=== PATIENT | female | born 1990 | race American Indian/Alaskan Native ===

== ENCOUNTER 2021-06-20 18:56 | Emergency (ER) | payer SELFPAY ==
[2021-06-20 19:22] VITALS: BP 115/75
[2021-06-20] MEDS ORDERED: ONDANSETRON 4 MG ODT TAB PO ONE (19:28)
[2021-06-20] MEDS ORDERED: SULFAMETHOXAZOLE/TRIMETHOPRIM 800/160MG DS TAB PO ONE (19:28)
[2021-06-20] MEDS ORDERED: oxyCODONE /ACETAMINOPHEN 5-325MG TAB PO ONE (19:28)
[2021-06-20] MEDS ORDERED: IBUPROFEN 600 MG TAB PO ONE (19:28)
[2021-06-20] MEDS ORDERED: CLINDAMYCIN 300 MG CAP PO ONE (19:28)
[2021-06-20] MEDS ORDERED: LIDOCAINE (1%) 10 MG/1 ML VIAL 20 ML MDV INFILTRATI ONE (19:29)
--- NOTE | 2021-06-20 22:31 | Emergency Department Report ---
ED General Adult HPI - General Chief complaint: Extremity Injury, Upper Stated complaint: BOIL Source: patient Mode of arrival: Ambulatory Limitations: No Limitations - History of Present Illness Initial comments: Patient is a 31-year-old -Burkin[place] female with past medical history of recurrent hidradenitis suppurativa who presents to the ED with complaint of acute onset persistent painful swollen mild erythematous maculopapular rash on right axilla for the last 1 week. Patient states that the pain has worsened in the last 4 days. Patient states that the pain is typical to her chronic recurrent hidradenitis suppurativa rash. Patient denies fever, chills, nausea, vomiting, chest pain or shortness of breath, traumatic injury, numbness and tingling or weakness of right arm, dizziness, syncope or headache. MD Complaint: Right axilla painful swollen erythematous maculopapular rash -: Sudden, week(s) (1) Location: upper extremity (Right axilla) Radiation: non-radiation Severity scale (0 -10): 8 Quality: aching, sharp Consistency: constant Improves with: none Worsens with: none Associated Symptoms: denies other symptoms, rash (Swollen, painful erythematous, maculopapular rash on right axilla). denies: confusion, chest pain, cough, diaphoresis, fever/chills, headaches, loss of appetite, malaise, nausea/vomi ting, shortness of breath, syncope, weakness, other Treatments Prior to Arrival: none - Related Data Previous Rx's Medication Instructions Recorded Last Taken Type Acetaminophen/Codeine [Tylenol 1 tab PO Q6H PRN #12 tab 06/20/21 Unknown Rx /Codeine # 3 tab] Clindamycin [Clindamycin CAP] 300 mg PO Q8HR #60 capsule 06/20/21 Unknown Rx Ibuprofen [Motrin] 800 mg PO Q8HR PRN #30 tablet 06/20/21 Unknown Rx Sulfamethoxazole/Trimethoprim 1 each PO Q12H #20 tablet 06/20/21 Unknown Rx [Bactrim DS TAB] Allergies Allergy/AdvReac Type Severity Reaction Status Date / Time No Known Allergies Allergy Verified 06/20/21 19:22 ED Review of Systems ROS: Stated complaint: BOIL Other details as noted in HPI Constitutional: denies: chills, fever Eyes: denies: eye pain, eye discharge, vision change ENT: denies: ear pain, throat pain Respiratory: denies: cough, shortness of breath, wheezing Cardiovascular: denies: chest pain, palpitations Endocrine: no symptoms reported Gastrointestinal: denies: abdominal pain, nausea, diarrhea Genitourinary: denies: urgency, dysuria, discharge Musculoskeletal: arthralgia (Painful, swollen mild erythematous maculopapular rash on right axilla). denies: back pain, joint swelling Skin: rash, change in color, other (Erythematous painful swollen maculopapular rash on right axilla). denies: lesions Neurological: denies: headache, weakness, paresthesias Psychiatric: denies: anxiety, depression Hematological/Lymphatic: denies: easy bleeding, easy bruising ED Past Medical Hx - Past Medical History Additional medical history: gallstones - Surgical History Past Surgical History?: Yes Additional Surgical History: , cyst removal - Social History Smoking Status: Never Smoker Substance Use Type: Alcohol - Medications Home Medications: Home Medications Medication Instructions Recorded Confirmed Last Taken Type Acetaminophen/Codeine [Tylenol 1 tab PO Q6H PRN #12 tab 06/20/21 Unknown Rx /Codeine # 3 tab] Clindamycin [Clindamycin CAP] 300 mg PO Q8HR #60 capsule 06/20/21 Unknown Rx Ibuprofen [Motrin] 800 mg PO Q8HR PRN #30 tablet 06/20/21 Unknown Rx Sulfamethoxazole/Trimethoprim 1 each PO Q12H #20 tablet 06/20/21 Unknown Rx [Bactrim DS TAB] ED Physical Exam - General Limitations: No Limitations General appearance: alert, in no apparent distress - Head Head exam: Present: atraumatic, normocephalic, normal inspection - Eye Eye exam: Present: normal appearance, PERRL, EOMI Pupils: Present: normal accommodation - ENT ENT exam: Present: normal exam, normal orophraynx, mucous membranes moist, TM's normal bilaterally, normal external ear exam - Neck Neck exam: Present: normal inspection, full ROM - Respiratory Respiratory exam: Present: normal lung sounds bilaterally. Absent: respiratory distress, wheezes, rhonchi, chest wall tenderness, accessory muscle use, decreased breath sounds - Cardiovascular Cardiovascular Exam: Present: regular rate, normal rhythm, normal heart sounds. Absent: systolic murmur, diastolic murmur, rubs, gallop - GI/Abdominal GI/Abdominal exam: Present: soft, normal bowel sounds. Absent: tenderness, guarding, rebound, hyperactive bowel sounds, hypoactive bowel sounds - Extremities Exam Extremities exam: Present: normal inspection, full ROM, tenderness (Palpable right axilla tenderness due to erythematous maculopapular fluctuant rash), normal capillary refill. Absent: pedal edema, joint swelling - Back Exam Back exam: Present: normal inspection, full ROM. Absent: tenderness, CVA tenderness (R), CVA tenderness (L), muscle spasm, paraspinal tenderness - Neurological Exam Neurological exam: Present: alert, oriented X3, CN II-XII intact, normal gait, reflexes normal - Psychiatric Psychiatric exam: Present: normal affect, normal mood - Skin Skin exam: Present: warm, dry, intact, normal color, rash (Swollen, severely tender, erythematous maculopapular fluctuant rash on right axilla) ED Course Vital Signs 06/20/21 19:21 Temperature 99.9 F H Pulse Rate 90 Respiratory 19 Rate Blood Pressure 115/75 O2 Sat by Pulse 98 Oximetry - I & D Right Arm Type of Procedure: Simple Site: Right axilla Blade Size: 11 I & D Procedure: betadine prep, sterile drapes applied, sterile dressing applied, gauze wick placed Progress: The area was cleaned extensively with normal saline and Betadine solutions. Lidocaine 1% solution was infiltrated in the area for anesthesia. When anesthesia was fully achieved, the area was incised and drained with scalpel blade #11, and copious thick purulent discharge with traces of blood drained from the wound. The wound was then extensively debrided with normal saline and if loculations were broken with hemostat. Iodoform quarter gauze was used as a packing material. Patient tolerated procedure well. The wound was then dressed appropriately with 4 x 4 gauzes and Tegaderm. on reevaluation, patient's pain is well controlled medications, patient is hemodynamically stable. Patient was therefore discharged home on pain medications and antibiotics advised to return to the ED in 2 days for wound recheck and packing removal. Patient is advised to follow-up with her primary care physician in 7 to 10 days for reevaluation. ED Medical Decision Making - Medical Decision Making This is a 32-year-old -[place] female with past medical history of recurrent hidradenitis suppurativa who presents to the ED with complaint of acute onset persistent painful swollen mild erythematous maculopapular rash on right axilla for the last 1 week. Patient states that the pain has worsened in the last 4 days. Patient states that the pain is typical to her chronic recurrent hidradenitis suppurativa rash. In the ED, patient is alert and oriented x3 and is not in any distress. Patient however appears to be in significant pain. Patient was treated for pain in the ED and also given initial oral antibiotics in the ED. Right axilla abscess was incised and drained per protocol. The area was cleaned extensively with normal saline and Betadine s olutions. Lidocaine 1% solution was infiltrated in the area for anesthesia. When anesthesia was fully achieved, the area was incised and drained with scalpel blade #11, and copious thick purulent discharge with traces of blood drained from the wound. The wound was then extensively debrided with normal saline and if loculations were broken with hemostat. Iodoform quarter gauze was used as a packing material. Patient tolerated procedure well. The wound was then dressed appropriately with 4 x 4 gauzes and Tegaderm. on reevaluation, patient's pain is well controlled medications, patient is hemodynamically stable. Patient was therefore discharged home on pain medications and antibiotics advised to return to the ED in 2 days for wound recheck and packing removal. Patient is advised to follow-up with her primary care physician in 7 to 10 days for reevaluation. - Differential Diagnosis Cellulitis; folliculitis; cutaneous abscess Critical care attestation.: If time is entered above; I have spent that time in minutes in the direct care of this critically ill patient, excluding procedure time. ED Disposition Clinical Impression: Cutaneous abscess of right axilla, Cellulitis of right axilla Disposition: 01 HOME / SELF CARE / HOMELESS Is pt being admited?: No Does the pt Need Aspirin: No Condition: Stable Instructions: Skin Abscess, [id number], Cellulitis, Adult, [id number], Incision and Drainage, Care After Additional Instructions: Take medication with food, drink plenty of fluids and follow-up with your primary care physician in 7 to 10 days for reevaluation. Return to the ED in 2 days for wound recheck and packing removal. Otherwise return to the ED immediately if your symptoms get worse. Prescriptions: Sulfamethoxazole/Trimethoprim [Bactrim DS TAB] 1 each PO Q12H #20 tablet Clindamycin [Clindamycin CAP] 300 mg PO Q8HR #60 capsule Ibuprofen [Motrin] 800 mg PO Q8HR PRN #30 tablet PRN Reason: Pain , Severe (7-10) Acetaminophen/Codeine [Tylenol /Codeine # 3 tab] 1 tab PO Q6H PRN #12 tab PRN Reason: Pain , Severe (7-10) Referrals: [facility] [Provider Group] - 7-10 days Time of Disposition: 22:34 Print Language: THAI
== END 2021-06-20 23:15 | disposition home or self-care (01) ==
LOC: ED 18:56
DX: L02.411 Cutaneous abscess of right axilla (principal)
CPT/HCPCS: 99282; Q0162

== ENCOUNTER 2021-06-22 12:04 | Emergency (ER) | payer SELFPAY ==
--- NOTE | 2021-06-22 13:23 | Emergency Department Report ---
- General Stated Complaint: PACKING REMOVED Time Seen by Provider: 06/22/21 12:50 - History of Present Illness Initial Comments: The patient was evaluated in the emergency department for symptoms described in the history of present illness. He/she was evaluated in the context of the global COVID-19 pandemic, which necessitated consideration that the patient might be at risk for infection with the virus that causes COVID-19. Institutional protocols and algorithms that pertain to the evaluation of patients at risk for COVID-19 are in a state of rapid change based on information released by regulatory bodies including the CDC and federal and state organizations. These policies and algorithms were followed during the patient's care in the emergency department. Please note that these policies, procedures and recommendations changed on a rapid basis. 31-year-old -[place]el[place] female presents to the emergency room for packing removal. Patient states she came 2 days ago and had an incision and drain to her right axillary secondary to abscess. Patient states that she has had this before. She reports that she has been taking her antibiotics which she was placed on clindamycin and Bactrim. Patient states her pain medicine is not holding her as she is got Tylenol 3. She denies any fever chills no increased drainage. He states that the pain is gotten worse in the last [address] Patient [address] by private vehicle. - Related Data Previous Rx's Medication Instructions Recorded Last Taken Type Acetaminophen/Codeine [Tylenol 1 tab PO Q6H PRN #12 tab 06/20/21 Unknown Rx /Codeine # 3 tab] Clindamycin [Clindamycin CAP] 300 mg PO Q8HR #60 capsule 06/20/21 Unknown Rx Ibuprofen [Motrin] 800 mg PO Q8HR PRN #30 tablet 06/20/21 Unknown Rx Sulfamethoxazole/Trimethoprim 1 each PO Q12H #20 tablet 06/20/21 Unknown Rx [Bactrim DS TAB] Allergies Allergy/AdvReac Type Severity Reaction Status Date / Time No Known Allergies Allergy Verified 06/20/21 19:22 ED Review of Systems ROS: Stated complaint: PACKING REMOVED Other details as noted in HPI ED Past Medical Hx - Past Medical History Additional medical history: gallstones - Surgical History Additional Surgical History: , cyst removal - Social History Smoking Status: Never Smoker Substance Use Type: Alcohol - Medications Home Medications: Home Medications Medication Instructions Recorded Confirmed Last Taken Type Acetaminophen/Codeine [Tylenol 1 tab PO Q6H PRN #12 tab 06/20/21 Unknown Rx /Codeine # 3 tab] Clindamycin [Clindamycin CAP] 300 mg PO Q8HR #60 capsule 06/20/21 Unknown Rx Ibuprofen [Motrin] 800 mg PO Q8HR PRN #30 tablet 06/20/21 Unknown Rx Sulfamethoxazole/Trimethoprim 1 each PO Q12H #20 tablet 06/20/21 Unknown Rx [Bactrim DS TAB] ED Physical Exam - General General appearance: alert, in no apparent distress - Head Head exam: Present: atraumatic, normocephalic - Eye Eye exam: Present: normal appearance - ENT ENT exam: Present: mucous membranes moist - Neck Neck exam: Present: normal inspection - Respiratory Respiratory exam: Present: normal lung sounds bilaterally. Absent: respiratory distress - Cardiovascular Cardiovascular Exam: Present: regular rate, normal rhythm. Absent: systolic murmur, diastolic murmur, rubs, gallop - GI/Abdominal GI/Abdominal exam: Present: soft, normal bowel sounds - Extremities Exam Extremities exam: Present: normal inspection - Back Exam Back exam: Present: normal inspection - Neurological Exam Neurological exam: Present: alert, oriented X3 - Psychiatric Psychiatric exam: Present: normal affect, normal mood - Skin Skin exam: Present: warm, intact, normal color, other (Iodoform removed patient tolerated well [address] Absent: rash, erythema ED Medical Decision Making - Medical Decision Making 31-year-old -[place]el[place] female presents to the emergency room for packing removal. Patient states she came 2 days ago and had an incision and drain to her right axillary secondary to abscess. Patient states that she has had this before. She reports that she has been taking her antibiotics which she was placed on clindamycin and Bactrim. Patient states her pain medicine is not holding her as she is got Tylenol 3. She denies any fever chills no increased drainage. He states that the pain is gotten worse in the last 24 hours[address] Patient drove by private vehicle. Critical care attestation.: If time is entered above; I have spent that time in minutes in the direct care of this critically ill patient, excluding procedure time. ED Disposition Clinical Impression: Abscess packing removal Disposition: 01 HOME / SELF CARE / HOMELESS Is pt being admited?: No Does the pt Need Aspirin: No Condition: Stable Instructions: How to Change Your Wound Dressing, [id number] Additional Instructions: Continue with dressing change complete antibiotics pain medication as needed increase your fluids advance your diet as tolerated. Follow-up with your primary care provider. Referrals: [facility] [Provider Group] - 3-5 Days
[2021-06-22 16:32] VITALS: BP 116/72
== END 2021-06-22 14:00 | disposition home or self-care (01) ==
LOC: ED 12:04
DX: Z48.01 Encounter for change or removal of surgical wound dressing (principal); Z98.890 Other specified postprocedural states; Z72.89 Other problems related to lifestyle; Z79.899 Other long term (current) drug therapy
CPT/HCPCS: 99281; 99282